=== PATIENT | female | born 1970 | race Caucasian/White ===

== ENCOUNTER 2017-11-05 13:34 | Outpatient (CLI) | payer OTHER ==
--- NOTE | 2017-11-05 17:38 | CT ---
LOW DOSE CT THORAX 11/05/17 HISTORY: Smoking history. Patient has been smoking for 33 years and is currently a smoker. Patient also compla ins of back pain. COMPARISON: None available. FINDINGS: Lack of intravenous contrast limits evaluation of the mediastinal structures, but no enlarged lymph n odes are seen. Minimal vascular calcifications are seen in the aortic arch. The lungs are clear. No discrete pulmonary nodule, mass or pleural effusion is seen. Osseous structures are intact. IMPRESSION: Lung Rads - category I. No pulmonary nodules are visualized. Continued annual screening with low dose CT scan thorax in twelve months is recommended. POS: ANUEL
== END 2017-11-05 13:35 | disposition home or self-care (01) ==
LOC: CT 13:34
PROVIDERS: ATTEND Family Medicine
DX: Z12.2 Encounter for screening for malignant neoplasm of respiratory organs (principal); F17.210 Nicotine dependence, cigarettes, uncomplicated; M54.16 Radiculopathy, lumbar region
CPT/HCPCS: G0297

== ENCOUNTER 2019-07-16 09:53 | Outpatient (CLI) | payer OTHER ==
--- NOTE | 2019-07-16 12:10 | RAD ---
RADIOGRAPH LUMBAR SPINE 4 VIEWS: DATE: 07/16/2019 HISTORY: 49-year-old female with low back pain. Also, MRI clearance examination. History of removal of neurostimulator. Rule out retained leads. TECHNIQUE: AP. 3 lateral in flexion, neutral, and extension. Additional fifth AP view to include midthoracic-upp er spine up to the T3-4 level. FINDINGS: There are 5 lumbar-type vertebrae. Alignment is normal. Vertebral body heights and disc spaces are ma intained. There is no evidence of fracture, significant osteophytes, or any other focal osseous abnormality. There is no instability between flexion and extension. Fairly good range of motion. No retained spina l cord stimulator leads. No generator. IMPRESSION: 1. Normal radiographic study of the lumbar spine. 2. No retained neural stimulator leads. 3. The patient is cleared for MRI.
--- NOTE | 2019-07-16 13:12 | MRI ---
MRI LUMBAR SPINE NONCONTRAST: DATE: 07/16/2019 HISTORY: 49-year-old female with chronic low back pain and left lumbar radiculopathy. COMPARISON: none FINDINGS: Plain radiograph of same day demonstrates 5 standard lumbar type vertebrae. Vertebral body heights ar e maintained. Disc desiccation and mild disc space narrowing at L3-4 and L4-5, where there are minimal disc bulges. Conus medullaris terminates at L1. Cauda equina is arranged in a symmetrical, no rmal distribution throughout the thecal sac. No central stenosis or neural foraminal stenosis at any level. Degenerative facet changes at lower levels are mild. Perivertebral spaces are unremarkable . No focal disc herniation and no nerve root impingement at any level. IMPRESSION: 1) very mild degenerative disc changes at L3-4 and L4-5, and very mild facet osteoarthrosis. 2) otherwise normal.
== END 2019-07-16 09:54 | disposition home or self-care (01) ==
LOC: TBSIIMAG 09:53 → SCSMRI 09:54
PROVIDERS: ATTEND Surgery
DX: M25.552 Pain in left hip (principal); M79.605 Pain in left leg; M54.40 Lumbago with sciatica, unspecified side; M47.816 Spondylosis without myelopathy or radiculopathy, lumbar region; M51.36 Other intervertebral disc degeneration, lumbar region
CPT/HCPCS: 72110; 72148